=== PATIENT | male | born 1970 | race Caucasian/White ===

== ENCOUNTER 2023-06-25 00:16 | Day surgery (SDC) | payer OTHER, SELFPAY ==
[2023-06-14 12:18] VITALS: BMI 31.6
--- NOTE | 2023-06-22 08:41 | SUR.PREOP ---
Patient called regarding upcoming procedure. Reviewed preop instructions, appointment times, and procedure prep.
[2023-06-25 10:05] VITALS: BP 138/81; PULSE 92; RESP 18; TEMP 36.1; O2SAT 100; BMI 32.1
[2023-06-25] MEDS: LACTATED RINGERS 1,000 ML 150 ML IV CONT (10:25)
--- NOTE | 2023-06-25 10:37 | WPDANESEPPF ---
Anes - Initial Pre Proc Eval Procedure: Operation Date: 06/25/23 11:30 Proposed Procedures p Screening Colonoscopy - Colt Brown MD Date/Time: 06/25/23 10:37 Surgeon: Colt Brown MD Pre Op Diagnosis: neoplasm screening Patient Data Age: 52 Gender: M Height: 1.78 m Weight: 101.6 kg Last Vital Signs Temp 96.9 F L 06/25/23 10:05 Pulse 92 06/25/23 10:05 Resp 18 06/25/23 10:05 BP 138/81 06/25/23 10:05 Pulse Ox 100 06/25/23 10:05 O2 Del Method Room Air 06/25/23 10:05 Allergies Allergy/AdvReac Type Severity Reaction Status Date / Time alprazolam Allergy Severe SUICIDEAL Verified 06/25/23 10:13 IDEATION Penicillins Allergy Mild Fever Verified 06/25/23 10:13 Home Medications Medication Instructions Recorded Confirmed Type escitalopram oxalate 20 mg tablet 20 mg PO DAILY #90 tabs 05/30/23 06/25/23 Rx (Lexapro) hydroxyzine HCl 25 mg tablet 25 mg PO TID PRN Insomnia 05/30/23 06/25/23 History trazodone 50 mg tablet 50 mg PO QHS PRN Insomnia 05/30/23 06/25/23 History Patient hx anesthesia problems: none Family hx anesthesia problems: none Results Review: All pre-operative results and documents have been reviewed as part of the pre-operative evaluation. [facility] Past Medical History Medical History GEOVANY (generalized anxiety disorder) Surgical History Surgical History History of appendectomy Family History Family History Mother Hypertension Depression Sibling Depression Hypertension Other Thyroid disorder Social History Social History Social History: Smoking status: Never smoker Second hand tobacco smoke exposure: No Alcohol intake: never Substance use: never Substance use type: does not use Do You Feel Safe in your Home?: Yes Lack of Transportation: No Lack of Food: Never True Current Housing: I Have Housing Concerned About Future Housing: No Difficulty Paying Gas/Electric Bills: No Difficulty Paying for Meds: No Currently Unemployed: No Education: Trade/Vocational Certificate Difficulty w/ Childcare or Family Care: No Living arrangements: with family 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/Education: 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 Gender identity (if verbalized by the patient): Male Sexual Orientation (if Verbalized by the Patient): Straight or Heterosexual Spiritual care concerns: No Anes - Eval Final PreProcedure Day of Procedure 06/25/23 10:37 Patient weight: obese Heart: regular rate and rhythm Lungs: clear to auscultation Airway: Mallampati scale class II Neurological: alert and oriented Last oral intake: >/= 8 hours ASA classification: II Emergent: no Anesthetic plan: proceed Anesthesia type and monitoring: general GIVS and standard monitoring Results Review: All pre-operative results and documents have been reviewed as part of the pre-operative evaluation. Informed Consent: The patient's anesthetic plan and its attendant risks and benefits were discussed with the patient/family/POA. Questions were solicited and answers provided to the satisfaction of the patient/family/POA.
--- NOTE | 2023-06-25 10:56 | PM.HPGS ---
History of Present Illness History of Present Illness Consent: Risks, benefits, and alternatives have been discussed and questions answered. Patient agrees to proceed with procedure. Chief complaint: neoplasm screening Narrative: Randy Romo is a 52 year old male here for first screening colonoscopy Review of Systems Review of Systems: All systems reviewed & are unremarkable except as noted in HPI and below PMFSH Past Medical History Medical History GEOVANY (generalized anxiety disorder) Surgical History Surgical History History of appendectomy Family History Family History Mother Hypertension Depression Sibling Depression Hypertension Other Thyroid disorder Social History Social History Social History: Smoking status: Never smoker Second hand tobacco smoke exposure: No Alcohol intake: never Substance use: never Substance use type: does not use Do You Feel Safe in your Home?: Yes Lack of Transportation: No Lack of Food: Never True Current Housing: I Have Housing Concerned About Future Housing: No Difficulty Paying Gas/Electric Bills: No Difficulty Paying for Meds: No Currently Unemployed: No Education: Trade/Vocational Certificate Difficulty w/ Childcare or Family Care: No Living arrangements: with family Occupation/Education: occupation 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 Gender identity (if verbalized by the patient): Male Sexual Orientation (if Verbalized by the Patient): Straight or Heterosexual Spiritual care concerns: No Meds Home Medications and Allergies Home Medications Medication Instructions Recorded Confirmed Type escitalopram oxalate 20 mg tablet 20 mg PO DAILY #90 tabs 05/30/23 06/25/23 Rx (Lexapro) hydroxyzine HCl 25 mg tablet 25 mg PO TID PRN Insomnia 05/30/23 06/25/23 History trazodone 50 mg tablet 50 mg PO QHS PRN Insomnia 05/30/23 06/25/23 History Allergies Allergy/AdvReac Type Severity Reaction Status Date / Time alprazolam Allergy Severe SUICIDEAL Verified 06/25/23 10:13 IDEATION Penicillins Allergy Mild Fever Verified 06/25/23 10:13 Vital Signs Vital Signs - 24 hr 06/25/23 10:05 Temperature 96.9 F L Pulse Rate 92 Respiratory Rate 18 Blood Pressure 138/81 Pulse Oximetry 100 Oxygen Delivery Room Air Exam Const: General: comfortable and no acute distress HENMT: Face/Nose/Sinus: Normal nares present Eyes: General: appearance normal, both eyes and all related structures Neck: Neck: no JVD Resp: Auscultation: clear to auscultation bilaterally Cardio: Rate: regular rate Rhythm: regular rhythm GI: Inspection: non-distended GI Palp: Yes Soft to palpation Skin: General skin exam: normal color Neuro: General: gait normal Speech: normal speech Extrem: General: normal to inspection Psych: Mental Status: mental status grossly normal Assessment and Plan Assessment and plan (1) Colon cancer screening: Code(s): Z12.11 - Encounter for screening for malignant neoplasm of colon Status: Acute Assessment and Plan: colonoscopy
[2023-06-25 11:17] VITALS: BP 108/76; PULSE 88; RESP 19; O2SAT 97
[2023-06-25 11:27] VITALS: BP 111/71; PULSE 63; RESP 17; O2SAT 98
[2023-06-25 11:37] VITALS: BP 110/72; PULSE 67; RESP 19; O2SAT 97
== END 2023-06-25 11:43 | disposition home or self-care (01) ==
PROVIDERS: PCP Physician Assistant; Visit Provider Internal Medicine Gastroenterology
PROC: 0DJD8ZZ Inspection of Lower Intestinal Tract, Via Natural or Artificial Opening Endoscopic (ICD-10-PCS; CPT 45378; principal; 2023-06-25 11:30)
DX: Z12.11 Encounter for screening for malignant neoplasm of colon (principal); D12.2 Benign neoplasm of ascending colon; D12.4 Benign neoplasm of descending colon; K64.8 Other hemorrhoids; F41.9 Anxiety disorder, unspecified; Z98.890 Other specified postprocedural states; E66.9 Obesity, unspecified; Z68.32 Body mass index [BMI] 32.0-32.9, adult
CPT/HCPCS: 45385; 88305; J2704; J7120

== ENCOUNTER 2023-07-12 00:07 | Day surgery (SDC) | payer OTHER, SELFPAY ==
[2023-05-10 17:13] VITALS: BMI 32.3
--- NOTE | 2023-05-10 17:24 | PC.NURSE ---
Addendum entered by Carolyn Fitch RN 05/10/23 17:28: May take alprazolam if needed. Original Note: Report to the Outpatient Waiting Room, entrance under the green pavilion located off [facility], at 1030 on 05-21-23. Planned Procedure Time: 1230. Time changes happen often and if your time is changed the preop area will call you the afternoon before. - You and your visitor will be asked to self-screen and do not enter if you have any COVID symptoms. - A mask is optional within the hospital at this time. Patients may have clear liquids (water, carbonated beverages, clear teas, apple juice) until 3 hours prior to surgery with a maximum of 20 ounces. 0930 - No food from midnight until time of surgery - Infants may have breast milk until 4 hours before surgery, formula 6 hours prior to surgery. - Children will be allowed to drink immediately following surgery. If applicable, please bring a bottle or sippy cup to assist with drinking. Juice, water, soda, and popsicles are readily available. For infants on formula, please bring formula the day of surgery. Pacifiers are allowed. Take the following medications with a SIP of water the morning of surgery: buspirone, escitalopram DO NOT STOP ANY OF YOUR OTHER PRESCRIPTION MEDICATIONS PRIOR TO SURGERY ?EXCEPT THE FOLLOWING Medications to discontinue per physician: N/A Please no make-up, nail romanian, hairspray, perfume, deodorant, or body powder the day of surgery. No jewelry (including any body piercings) or valuables the day of surgery, leave them at home. Please take a shower or bath the night before, or the morning of, surgery with an antibacterial soap. Wear comfortable, loose fitting clothing. Children are encouraged to wear pajamas. - Jewelry must be removed prior to entering the operating room. Rings and piercings that are not removed may be cut off. - The hospital will not accept responsibility for valuables. - Please leave all valuables, including medications, at home the day of surgery. If you are going home after surgery, a licensed [employer] company driver must drive you home. - NO public transportation without another adult if you receive anesthesia. - We recommend that an adult stay with you for 24 hours following discharge. - We also recommend that you do not drive, make important decision, drink alcoholic beverages, or take any drugs that were not prescribed by your health care provider for at least 24 hours after your discharge time. For Pediatric surgeries, we recommend two adults accompany the child home. Follow any additional instructions given to you from your surgeon. If you or anyone in your household have experienced Covid symptoms in the past week, please notify your surgeon or the nurse liaison at the phone number below for possible testing. Telephone instructions given to Randy Romo and asked if any additional questions and then verbalized understanding. Patient advised to call surgeon office or pre surgery nurse liaison [phone] if any additional questions.
--- NOTE | 2023-07-06 10:37 | PC.NURSE ---
Report to the Outpatient Waiting Room, entrance under the green pavilion located off [facility], at time 0700 on date 07/12/23. Planned Procedure Time: 0900. Time changes happen often and if your time is changed the preop area will call you the afternoon before. - You and your visitor will be asked to self-screen and do not enter if you have any COVID symptoms. - A mask is optional within the hospital at this time. Patients may have clear liquids (water, carbonated beverages, clear teas, apple juice) until 3 hours prior to surgery with a maximum of 20 ounces. - No food from midnight until time of surgery Take the following medications with a SIP of water the morning of surgery: LEXAPRO, HYDROXYZINE IF NEEDED DO NOT STOP ANY OF YOUR OTHER PRESCRIPTION MEDICATIONS PRIOR TO SURGERY ?EXCEPT THE FOLLOWING Medications to discontinue per physician: N/A Date to take last dose: N/A Please no make-up, nail faroese, hairspray, perfume, deodorant, or body powder the day of surgery. No jewelry (including any body piercings) or valuables the day of surgery, leave them at home. Please take a shower or bath the night before, or the morning of, surgery with an antibacterial soap. Wear comfortable, loose fitting clothing. - Jewelry must be removed prior to entering the operating room. Rings and piercings that are not removed may be cut off. - The hospital will not accept responsibility for valuables. - Please leave all valuables, including medications, at home the day of surgery. If you are going home after surgery, a licensed concrete mixing truck driver must drive you home. - NO public transportation without another adult if you receive anesthesia. - We recommend that an adult stay with you for 24 hours following discharge. - We also recommend that you do not drive, make important decision, drink alcoholic beverages, or take any drugs that were not prescribed by your health care provider for at least 24 hours after your discharge time. Follow any additional instructions given to you from your surgeon. If you or anyone in your household have experienced Covid symptoms in the past week, please notify your surgeon or the nurse liaison at the phone number below for possible testing. Telephone instructions given to HADLEY MCNEAL and asked if any additional questions and then verbalized understanding. Patient advised to call surgeon office or pre surgery nurse liaison [phone] if any additional questions.
[2023-07-12] VITALS (7 sets, daily range): BP systolic 91–135; BP diastolic 50–114; PULSE 69–80; RESP 10–18; TEMP 36.2–36.8; O2SAT 99–100
[2023-07-12] MEDS: LACTATED RINGERS 1,000 ML 30 ML IV CONT (07:35)
--- NOTE | 2023-07-12 08:28 | PM.IMHP ---
H&P: HPI History of Present Illness Date/Time: 07/12/23 08:28 Chief Complaint: R chest wall mass Narrative: Randy is a 52 y/o male who presents to the office accompanied by his at the request of Suly Campbell PA-C for evaluation of a chest wall mass. Patient states he noticed this mass several months ago. He states the mass has increased in size. He will occasionally have a burning sensation near the mass. Patient was recently seen at [facility] ED on 05/07/23 for evaluation of anxiety and chest burning sensation. Chest x-ray was obtained and revealed a right anterior upper chest subcutaneous cyst/cystic lesion. Review of Systems Review of Systems: All systems reviewed & are unremarkable except as noted in HPI and below PMFSH Past Medical History Medical History GEOVANY (generalized anxiety disorder) Surgical History Surgical History History of appendectomy Family History Family History Mother Hypertension Depression Sibling Depression Hypertension Other Thyroid disorder Social History Social History Social History: Smoking status: Never smoker Second hand tobacco smoke exposure: No Alcohol intake: never Substance use: never Substance use type: does not use Do You Feel Safe in your Home?: Yes Lack of Transportation: No Lack of Food: Never True Current Housing: I Have Housing Concerned About Future Housing: No Difficulty Paying Gas/Electric Bills: No Difficulty Paying for Meds: No Currently Unemployed: No Education: Trade/Vocational Certificate Difficulty w/ Childcare or Family Care: No Living arrangements: with family Occupation/Education: occupation 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 Gender identity (if verbalized by the patient): Male Sexual Orientation (if Verbalized by the Patient): Straight or Heterosexual Spiritual care concerns: No Meds Home Medications and Allergies Home Medications Medication Instructions Recorded Confirmed Type escitalopram oxalate 20 mg tablet 20 mg PO DAILY #90 tabs 05/30/23 07/06/23 Rx (Lexapro) hydroxyzine HCl 25 mg tablet 25 mg PO TID PRN Insomnia 05/30/23 07/06/23 History trazodone 50 mg tablet 50 mg PO QHS PRN Insomnia 05/30/23 07/06/23 History Allergies Allergy/AdvReac Type Severity Reaction Status Date / Time alprazolam Allergy Severe SUICIDEAL Verified 07/06/23 10:35 IDEATION Penicillins Allergy Mild Fever Verified 07/06/23 10:35 Vital Signs Vital Signs - 24 hr 07/12/23 07:05 Temperature 36.2 C L Pulse Rate 80 Respiratory Rate 18 Blood Pressure 134/68 Pulse Oximetry 100 Oxygen Delivery Room Air Exam Const: General: cooperative, comfortable and no acute distress Chest: Other: large R chest wall mass Resp: Auscultation: clear to auscultation bilaterally Cardio: Rate: regular rate Rhythm: regular rhythm GI: Inspection: normal to inspection Assessment and Plan Assessment and plan (1) Mass of chest wall: Code(s): R22.2 - Localized swelling, mass and lump, trunk Status: Acute Assessment and Plan: will setup for exc bx in OR
--- NOTE | 2023-07-12 08:30 | WPDHPUPDATE1 ---
History and Physical Update Update Date/Time: 07/12/23 08:30 History and Physical has been reviewed, including an updated exam of the patient. There are NO changes in the patient's condition. Risks, benefits, and alternatives have been discussed and questions answered. Patient agrees to proceed with procedure.
--- NOTE | 2023-07-12 08:33 | WPDANESEPPF ---
Anes - Initial Pre Proc Eval Procedure: Operation Date: 07/12/23 09:00 Proposed Procedures p Excisional Biopsy of Right Chest Wall Mass - Mami Swenson MD Date/Time: 07/12/23 08:33 Surgeon: Mami Swenson MD Pre Op Diagnosis: Rt Chest Wall Mass Patient Data Age: 52 Gender: M Height: 1.78 m Weight: 101.4 kg Last Vital Signs Temp 97.2 F L 07/12/23 07:05 Pulse 80 07/12/23 07:05 Resp 18 07/12/23 07:05 BP 134/68 07/12/23 07:05 Pulse Ox 100 07/12/23 07:05 O2 Del Method Room Air 07/12/23 07:05 Allergies Allergy/AdvReac Type Severity Reaction Status Date / Time alprazolam Allergy Severe SUICIDEAL Verified 07/06/23 10:35 IDEATION Penicillins Allergy Mild Fever Verified 07/06/23 10:35 Home Medications Medication Instructions Recorded Confirmed Type escitalopram oxalate 20 mg tablet 20 mg PO DAILY #90 tabs 05/30/23 07/06/23 Rx (Lexapro) hydroxyzine HCl 25 mg tablet 25 mg PO TID PRN Insomnia 05/30/23 07/06/23 History trazodone 50 mg tablet 50 mg PO QHS PRN Insomnia 05/30/23 07/06/23 History Patient hx anesthesia problems: none Family hx anesthesia problems: none Results Review: All pre-operative results and documents have been reviewed as part of the pre-operative evaluation. [facility] Past Medical History Medical History GEOVANY (generalized anxiety disorder) Surgical History Surgical History History of appendectomy Family History Family History Mother Hypertension Depression Sibling Depression Hypertension Other Thyroid disorder Social History Social History Social History: Smoking status: Never smoker Second hand tobacco smoke exposure: No Alcohol intake: never Substance use: never Substance use type: does not use Do You Feel Safe in your Home?: Yes Lack of Transportation: No Lack of Food: Never True Current Housing: I Have Housing Concerned About Future Housing: No Difficulty Paying Gas/Electric Bills: No Difficulty Paying for Meds: No Currently Unemployed: No Education: Trade/Vocational Certificate Difficulty w/ Childcare or Family Care: No Living arrangements: with family Occupation/Education: 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 Gender identity (if verbalized by the patient): Male Sexual Orientation (if Verbalized by the Patient): Straight or Heterosexual Spiritual care concerns: No Anes - Eval Final PreProcedure Day of Procedure 07/12/23 08:33 Patient weight: obese Heart: regular rate and rhythm Lungs: clear to auscultation Airway: Mallampati scale class II Neurological: alert and oriented Last oral intake: >/= 8 hours Emergent: no Anesthetic plan: proceed Anesthesia type and monitoring: general LMA and standard monitoring Results Review: All pre-operative results and documents have been reviewed as part of the pre-operative evaluation. Informed Consent: The patient's anesthetic plan and its attendant risks and benefits were discussed with the patient/family/POA. Questions were solicited and answers provided to the satisfaction of the patient/family/POA.
[2023-07-12] MEDS: ceFAZolin 2 GM/D5W 50 ML 2 GM/50 ML BAG IVPB (08:58)
[2023-07-12] MEDS: BUPIVACAINE/EPINEPHRINE 0.5% 30 ML VIAL INFILTRATE (09:13)
--- NOTE | 2023-07-12 09:44 | P.OP_ITS ---
Procedure Note - Detailed Date of Procedure 07/12/23 Pre-op Diagnosis Rt Chest Wall Mass Post-op Diagnosis Other (Sebaceous cyst right chest wall measuring 9 x 8 cm) Procedure Performed Excisional biopsy right chest wall mass Surgeon Mami Swenson MD Anesthesia General and Local Indications 62-year-old male presenting to the office with a large cystic mass on his right chest. The patient reports the mass has been slowly growing over the last few months and is tender to palpation. Findings 9 x 8 cm sebaceous cyst Description of Procedure The patient was taken to the operating room and placed in the supine position. After adequate induction general anesthesia, the patient was prepped and draped in the normal sterile fashion. A time-out was then done to the patient's identity, as well as the procedure being performed. I began by localizing the area in and around this mass in the right chest. Once adequately anesthetized, I made an incision over the central portion of this mass. Going through the dermis and into the subcutaneous tissue, there was noted to be a well- circumscribed mass most consistent with a large sebaceous cyst. Using careful blunt and sharp dissection, was able to get around this mass in full. I was then able to excise the mass in full. We did open the mass to check the contents, which was consistent with sebaceous material. This will now be sent to pathology for further review. The mass was noted to measure 9 x 8 cm after excision. This was all contained within the subcutaneous tissue and did not invade the underlying fascia or muscle. I then copiously irrigated the cavity and further local anesthetic was placed. The subcutaneous tissue was closed with 3-0 Vicryl suture. The skin was closed with 4-0 Monocryl subcuticular suture. Dermabond was placed on the wound. The patient tolerated the procedure well and was extubated postoperatively. He will be transferred to the recovery room in stable condition. Estimated Blood Loss 5 Drains No Packing No Pathology Yes Complications No immediate complications Condition Stable Disposition PACU [facility] Billing Surgery - Charge Forward: Surgery Billing
[2023-07-12] MEDS: oxyCODONE HCL (*CRX) 5 MG TAB IR PO (10:54)
[2023-07-12 10:59] LABS: Hepatitis B Surface Antigen Negative (Negative)
[2023-07-12 11:16] LABS: HIV 1/2 Ab P24 Ag Result Negative (Negative); Hepatitis C Virus Antibody Negative (Negative)
== END 2023-07-12 11:31 | disposition home or self-care (01) ==
PROVIDERS: PCP Physician Assistant; Visit Provider Surgery
PROC: (CPT 11406; principal; 2023-07-12 09:00)
DX: L72.0 Epidermal cyst (principal); F41.9 Anxiety disorder, unspecified; E66.9 Obesity, unspecified; Z68.32 Body mass index [BMI] 32.0-32.9, adult; Z98.890 Other specified postprocedural states
CPT/HCPCS: 11406; 12034; 36415; 86703; 86803; 87340; 88304; A9270; G0432; J0690; J1100; J2250; J2405; J2704; J3010; J7120